=== PATIENT | female | born 1985 | race Caucasian/White ===

== ENCOUNTER 2016-12-15 12:48 | Emergency (ER) | payer OTHER ==
[2016-12-15 13:23] LABS: BASOPHIL 0.2 % (0-2); EOSINOPHIL 1.9 % (0-5); HCT 36.1 % (37.0-47.0); HGB 12.2 g/dl (12.5-16.0); MCH 27.6 pg (25.0-31.0); MCHC 33.8 g/dL (32.0-36.0); MCV 81.7 fL (78.0-100.0); MONOCYTE 9.8 % (0-12); MPV 8.9 fL (6.0-9.5); NEUTROPHIL 77.1 % (41-80); PLT 415 K/uL (150-400); RBC 4.42 M/uL (4.20-5.40); RDW 15.4 % (11.5-14.0); WBC 8.5 K/uL (4.0-10.5)
[2016-12-15 13:36] LABS: INR 0.97 (0.9-1.2); PROTHROMBIN TIME 12.5 SECONDS (11.7-14.0); PTT 28.6 SECONDS (23.2-31.4)
[2016-12-15 13:44] LABS: MYOGLOBIN 23 ng/mL (26-65); TROPONIN T < 0.010 ng/mL
[2016-12-15 13:46] LABS: ALBUMIN 4.1 g/dL (3.5-5.0); BILIRUBIN - TOTAL 0.3 mg/dL (0.1-1.0); CREATININE 0.7 mg/dL (0.5-1.0); GLOBULIN (CALCULATION) 3.3 g/dL (2.2-4.2); POTASSIUM 3.7 mmol/L (3.5-5.1); TOTAL PROTEIN 7.4 g/dL (6.4-8.3)
[2016-12-15 14:26] LABS: BILIRUBIN NEGATIVE (NEGATIVE); BLOOD 3+ Ery/uL (NEGATIVE); CLARITY CLEAR (CLEAR); COLOR YELLOW (YELLOW); GLUCOSE (U) NORMAL (NORMAL); KETONE (U) NEGATIVE (NEGATIVE); LEUKOCYTES NEGATIVE Leu/uL (NEGATIVE); NITRITE NEGATIVE (NEGATIVE); PROTEIN NEGATIVE (NEGATIVE); UROBILINOGEN 0.2 mg/dL (0.2-1.0); pH 5.5 (5.0-9.0)
[2016-12-15 14:50] LABS: BACTERIA TRACE; URINARY RBC TNTC
== END 2016-12-15 16:16 | disposition home or self-care (01) ==
LOC: FER 12:48
PROVIDERS: Internal Medicine
DX: R20.2 Paresthesia of skin (principal); H53.8 Other visual disturbances; Z85.3 Personal history of malignant neoplasm of breast; Z90.12 Acquired absence of left breast and nipple
CPT/HCPCS: 36415; 70450; 71010; 80053; 80061; 81001; 82550; 82553; 83874; 84484; 85025; 85610; 85730; 93005